=== PATIENT | female | born 1940 | race Caucasian/White ===

== ENCOUNTER 2021-08-16 10:29 | Emergency (ER) | payer MEDICARE ==
[~2021-08-16] VITALS: Ht 162.6 cm; Wt 68.2 kg
[2021-08-16 10:32] VITALS: BP 141/69
[2021-08-16 11:32] LABS: CLARITY,URINE SLIGHTLY CLOUDY (Clear); COLOR,URINE YELLOW (Yellow); GLUCOSE, URINE NEGATIVE (Neg); KETONES,URINE 15 mg/dl (Neg); LEUKOCYTE ESTERASE ,URINE NEGATIVE (Neg); NITRITES, URINE NEGATIVE (Neg); OCCULT BLOOD,URINE MODERATE (Neg); PH,URINE 5.5 (4.8-8.0); PROTEIN,URINE 100 mg/dl (Neg); UROBILINOGEN,URINE 0.2 E.U/dL (0.2-1.0)
[2021-08-16 11:39] LABS: UA COLLECTION TYPE CLN CATCH MIDSTREAM
[2021-08-16 11:49] LABS: MUCUS STRANDS MODERATE /LPF (Neg); SQUAMOUS EPITHELIAL CELL,UR MANY /LPF (FEW)
--- NOTE | 2021-08-16 11:50 | NUR ---
Pt place in room 10 and on isolation, airborn precautions. YUE Peraza updated of pt status and plan of care.
[2021-08-16 11:51] LABS: WBC,URINE 0-4 /HPF (0-4)
[2021-08-16 11:52] LABS: BACTERIA,URINE 2+ /HPF (Neg); RBC,URINE 0-2 /HPF (0-2)
[2021-08-16 12:11] LABS: BASOPHILS % (AUTO) 0.1 % (0-1); EOSINOPHILS % (AUTO) 0.2 % (0-6); HEMATOCRIT 44.3 % (35.0-45.0); HEMOGLOBIN 15.3 g/dl (12.0-16.0); LYMPHOCYTES # (AUTO) 0.4 X10'3 (1.1-4.8); LYMPHOCYTES % (AUTO) 7.2 % (21-51); MEAN CORPUSCULAR HEMOGLOBIN 34.6 PG (27.0-31.0); MEAN CORPUSCULAR HGB CONC 34.6 g/dL (33.0-36.5); MEAN CORPUSCULAR VOLUME 100.1 FL (78-98); MEAN PLATELET VOLUME 7.8 FL (7.4-10.4); MONOCYTES # (AUTO) 0.4 X10'3 (0-0.9); MONOCYTES % (AUTO) 7.1 % (2-12); NEUTROPHILS # (AUTO) 4.5 X10'3 (1.8-7.7); NEUTROPHILS % (AUTO) 85.4 % (42-75); PLATELET COUNT 269 X10'3 (140-440); RED BLOOD COUNT 4.42 X10'6 (4.20-5.60); RED CELL DISTRIBUTION WIDTH 16.1 % (11.5-14.5); WHITE BLOOD COUNT 5.3 X10'3 (4.5-11.0)
[2021-08-16 12:14] LABS: ALANINE AMINOTRANSFERASE 31 U/L (12-78); ALBUMIN 3.7 G/DL (3.4-5.0); ALBUMIN/GLOBULIN RATIO 0.7 (1.1-1.5); ALKALINE PHOSPHATASE 72 IU/L (46-116); ANION GAP 10 (8-16); ASPARTATE AMINO TRANSFERASE 44 U/L (10-37); BILIRUBIN,TOTAL 0.4 MG/DL (0.1-1.0); BLOOD UREA NITROGEN 12 MG/DL (7-18); BUN/CREATININE RATIO 11.4 (6.6-38.0); CALCIUM 10.6 MG/DL (8.5-10.1); CHLORIDE 90 MMOL/L (99-107); CREATININE 1.05 MG/DL (0.40-0.90); GLUCOSE 128 MG/DL (70-104); LIPASE 288 U/L (73-393); MAGNESIUM 1.7 MG/DL (1.5-2.4); POTASSIUM 3.2 MMOL/L (3.5-5.1); SODIUM 128 MMOL/L (135-145); TOTAL CARBON DIOXIDE 28.2 MMOL/L (24-32); TOTAL PROTEIN 8.8 G/DL (6.4-8.2); eGFR 51 ML/MIN
[2021-08-16] MEDS ORDERED: potassium Cl 20 mEq SR tablet PO STA (12:26)
[2021-08-16] MEDS ORDERED: normal saline 1000ml 1,000 ML IV ONE ×2 (12:30)
[2021-08-16] MEDS ORDERED: CASIRIVIMAB/IMDEVIMAB inject. 10 ML in normal saline 100ml IV soln 100 ML IV ONE (12:30)
[2021-08-16] MEDS ORDERED: ONDA4TAB12 PO ×3 (12:45→13:29)
== END 2021-08-16 15:21 | disposition home or self-care (01) ==
LOC: ER 10:30
DX: U07.1 COVID-19 (principal); E87.6 Hypokalemia; E87.1 Hypo-osmolality and hyponatremia; Z79.899 Other long term (current) drug therapy
CPT/HCPCS: 36415; 80053; 81001; 83690; 83735; 85025; 87635; 96360; 99283; C9803; J3490; J7030; M0243; Q0244

== ENCOUNTER 2021-08-20 11:18 | Emergency (ER) | payer MEDICARE ==
[~2021-08-20] VITALS: Ht 165.1 cm; Wt 68.2 kg
[~2021-08-20 11:18] MED LIST: ONDA4TAB12 PO
[2021-08-20 11:29] VITALS: BP 126/87
[2021-08-20] MEDS ORDERED: normal saline 1000ML IV soln IVB ONE (12:15)
[2021-08-20 12:30] LABS: BASOPHILS % (AUTO) 0.6 % (0-1); EOSINOPHILS # (AUTO) 0.1 X10'3 (0-0.9); EOSINOPHILS % (AUTO) 1.1 % (0-6); HEMATOCRIT 38.3 % (35.0-45.0); HEMOGLOBIN 13.3 g/dl (12.0-16.0); LYMPHOCYTES # (AUTO) 0.6 X10'3 (1.1-4.8); LYMPHOCYTES % (AUTO) 10.7 % (21-51); MEAN CORPUSCULAR HEMOGLOBIN 34.5 PG (27.0-31.0); MEAN CORPUSCULAR HGB CONC 34.8 g/dL (33.0-36.5); MEAN CORPUSCULAR VOLUME 99.3 FL (78-98); MEAN PLATELET VOLUME 7.5 FL (7.4-10.4); MONOCYTES % (AUTO) 17.6 % (2-12); NEUTROPHILS # (AUTO) 4.1 X10'3 (1.8-7.7); PLATELET COUNT 328 X10'3 (140-440); RED BLOOD COUNT 3.86 X10'6 (4.20-5.60); RED CELL DISTRIBUTION WIDTH 15.4 % (11.5-14.5); WHITE BLOOD COUNT 5.9 X10'3 (4.5-11.0)
[2021-08-20 12:47] LABS: ALANINE AMINOTRANSFERASE 24 U/L (12-78); ALBUMIN 3.1 G/DL (3.4-5.0); ALBUMIN/GLOBULIN RATIO 0.8 (1.1-1.5); ALKALINE PHOSPHATASE 61 IU/L (46-116); ANION GAP 7 (8-16); ASPARTATE AMINO TRANSFERASE 23 U/L (10-37); BILIRUBIN,TOTAL 0.3 MG/DL (0.1-1.0); BLOOD UREA NITROGEN 6 MG/DL (7-18); BUN/CREATININE RATIO 7.1 (6.6-38.0); CALCIUM 9.2 MG/DL (8.5-10.1); CHLORIDE 97 MMOL/L (99-107); CREATININE 0.85 MG/DL (0.40-0.90); GLUCOSE 122 MG/DL (70-104); LIPASE 574 U/L (73-393); SODIUM 133 MMOL/L (135-145); TOTAL CARBON DIOXIDE 28.8 MMOL/L (24-32); TOTAL PROTEIN 6.9 G/DL (6.4-8.2); eGFR 65 ML/MIN
[2021-08-20 12:49] LABS: POTASSIUM 2.6 MMOL/L (3.5-5.1)
[2021-08-20] MEDS ORDERED: D5-1/2NS w/20 mEq potassium per 1000ml IV ONE (12:55)
[2021-08-20 13:25] LABS: MAGNESIUM 1.5 MG/DL (1.5-2.4)
[2021-08-20 14:07] LABS: BANDS% (MANUAL) 0.5 % (0-10); EOSINOPHILS % (MANUAL) 1.5 % (0-6); LYMPHOCYTES % (MANUAL) 11.5 % (21-51); MONOCYTES % (MANUAL) 17.5 % (2-12); TOTAL CELLS COUNTED 200
[2021-08-20 14:08] LABS: GIANT PLATELET FEW; PLATELET ESTIMATE NORMAL
[2021-08-20] MEDS: potassium Cl 20 mEq SR tablet PO PRN (16:30)
== END 2021-08-20 16:41 | disposition home or self-care (01) ==
LOC: ER 11:18
DX: U07.1 COVID-19 (principal); R19.7 Diarrhea, unspecified; R11.2 Nausea with vomiting, unspecified; E87.6 Hypokalemia; Z79.899 Other long term (current) drug therapy
CPT/HCPCS: 36415; 71045; 80053; 83690; 83735; 84145; 85007; 85025; 93005; 99285; J3480; J7030

== ENCOUNTER 2023-03-11 09:50 | Emergency (ER) | payer MEDICARE ==
[~2023-03-11] VITALS: Ht 160 cm; Wt 69.0 kg
[2023-03-11 09:54] VITALS: BP 144/72
[2023-03-11] MEDS ORDERED: HYDR-3973 PO (11:16)
== END 2023-03-11 11:36 | disposition home or self-care (01) ==
LOC: ER 09:51
DX: R07.89 Other chest pain (principal); W19.XXXA Unspecified fall, initial encounter; Y93.89 Activity, other specified; Y92.89 Other specified places as the place of occurrence of the external cause; Y99.8 Other external cause status
CPT/HCPCS: 99283

== ENCOUNTER 2024-07-27 06:35 | Emergency (ER) | payer MEDICARE ==
[~2024-07-27] VITALS: Ht 162.6 cm; Wt 66.0 kg
[~2024-07-27 06:35] MED LIST changes: +ONDA-243 PO; -ONDA4TAB12 PO
[2024-07-27 06:36] VITALS: BP 128/52; PULSE 74; RESP 16; O2SAT 97
[2024-07-27 07:42] VITALS: TEMP 99.3
== END 2024-07-27 07:43 | disposition home or self-care (01) ==
LOC: ER 06:36
DX: K94.09 Other complications of colostomy (principal)
CPT/HCPCS: 99281; A4421